=== PATIENT | male | born 1960 | race Asian ===

== ENCOUNTER 2016-07-07 08:13 | Emergency (ER) | payer OTHER ==
[~2016-07-07] VITALS: Ht 165.1 cm; Wt 55.8 kg
[2016-07-07 09:09] LABS: ABSOLUTE BASOPHIL COUNT 0 /CUMM (0.0-0.2); ABSOLUTE EOSINOPHIL COUNT 0 /CUMM (0.0-0.7); ABSOLUTE GRANULOCYTE CT 6.7 /CUMM (1.4-6.5); ABSOLUTE LYMPH COUNT 1.3 /CUMM (1.2-3.4); ABSOLUTE MONOCYTE COUNT 0.4 /CUMM (0.10-0.60); BASOPHIL % 0.3 % (0.0-2.0); EOSINOPHIL % 0 % (0-5); GRANULOCYTE % 79.9 % (42.2-75.2); HEMATOCRIT 39.2 % (42-52); MEAN CORPUSCULAR HGB 31.2 PG (27.0-31.0); MEAN CORPUSCULAR HGB CONC 33.5 G/DL (33.0-37.0); MEAN CORPUSCULAR VOLUME 93.1 FL (80.0-94.0); MEAN PLATELET VOLUME 7.5 FL (7.4-10.4); PLATELET COUNT 200 /CUMM (130-400); RBC DISTRIBUTION WIDTH 13.6 % (11.5-14.5); RED BLOOD CELL CT 4.21 /CUMM (4.70-6.10); WHITE BLOOD CELL COUNT 8.3 /CUMM (4.8-10.8)
--- NOTE | 2016-07-07 09:15 | RADIOLOGY REPORT ---
EXAMINATION: XR CHEST CLINICAL INFORMATION: Chest pain COMPARISON: None TECHNIQUE: 2 views of the chest were obtained. FINDINGS: Cardiomediastinal silhouette is within normal limits. Lungs are clear. Visualized bony thorax is intact. IMPRESSION: No acute pulmonary disease.
[2016-07-07] MEDS ORDERED: ZYRTEC10 M3 PO (09:16)
--- NOTE | 2016-07-07 09:25 | ED CARDIAC/CP/PALPITATIONS ---
History of Present Illness General Chief Complaint: Palpitations Stated Complaint: PALPITATIONS Source: patient Exam Limitations: no limitations Allergies Uncoded Allergies: SEAFOOD (Intermediate, ITCHING 07/07/16) Reconcile Medications Cetirizine HCl (Zyrtec) 10 MG TABLET 1 TAB PO DAILY ALLERGIES (Reported) Triage Note: 56 Y/O MALE C/O HEART PALPITATIONS, "ANXIETY" AND HEADACHE S/P TAKING SUPPLEMENT LAST NIGHT. STATES HE TOOK THE SUPPLEMENT "FOR ENERGY AND TO HELP ME RELAX"; STATES HE HAS TAKEN IN THE PAST WITH NO PROBLEMS. AFTER HE TOOK PILL LAST NIGHT, HE FELT "A HOT FLASH AND THEN MY HEART RATE WENT TOO HIGH .. I WAS VERY THIRSTY TOO". HR 90'S IN TRIAGE. EKG COMPLETED: SINUS TACH, 108 Triage Nurses Notes Reviewed? yes Onset: Abrupt Duration: day(s): (1), constant, continues in ED Timing: recent history HPI: 56-year-old male comes into emergency room for further evaluation of heart palpitations as well as some chest tightness and shortness of breath. Symptoms began last night after he took a arginine supplement. Patient reports he has taken this in the past and has had a similar reaction. He reports that he cannot sleep all night. Patient felt like his heart was racing. Denies any prior cardiac problems. Denies any prior history of MA. Nothing seems to make the symptoms better or worse. Denies any other associated symptoms. (KRISHNA RUBIO,GARETT) Vital Signs & Intake/Output Vital Signs & Intake/Output Vital Signs Date Time Temp Pulse Resp B/P B/P Pulse O2 O2 Flow FiO2 Mean Ox Delivery Rate 07/07 1610 100.3 07/07 1525 100.8 07/07 1457 101.4 96 18 154/74 97 Room Air 07/07 1254 97.2 92 16 128/68 98 Room Air 07/07 1047 97.3 87 18 141/69 98 Room Air 07/07 0822 97.2 101 18 170/83 100 Room Air Past History Travel History Traveled to [place] past 21 day No Medical History Any Pertinent Medical History? see below for history Neurological: NONE EENT: NONE Cardiovascular: NONE Respiratory: NONE Gastrointestinal: NONE Hepatic: NONE Renal: NONE Musculoskeletal: NONE Psychiatric: NONE Endocrine: NONE Blood Disorders: NONE Cancer(s): NONE LEAN SENSEI/Reproductive: NONE Surgical History Surgical History: non-contributory Psychosocial History What is your primary language Citizen Of [place] Tobacco Use: Never used Family History Hx Contributory? No (GARETT RODRIGUEZ) Review of Systems Review of Systems Constitutional: Reports: no symptoms. EENTM: Reports: no symptoms. Respiratory: Reports: no symptoms. Cardiovascular: Reports: see HPI. GI: Reports: no symptoms. Genitourinary: Reports: no symptoms. Musculoskeletal: Reports: no symptoms. Skin: Reports: no symptoms. Neurological/Psychological: Reports: no symptoms. Hematologic/Endocrine: Reports: no symptoms. Immunologic/Allergic: Reports: no symptoms. All Other Systems: Reviewed and Negative (GARETT RODRIGUEZ) Physical Exam Physical Exam General Appearance: well developed/nourished, no apparent distress, alert Head: atraumatic, normal appearance Eyes: Bilateral: normal appearance, EOMI. Ears, Nose, Throat: normal pharynx, hearing grossly normal Neck: normal inspection, full range of motion Respiratory: normal breath sounds, no respiratory distress Cardiovascular: regular rate/rhythm Gastrointestinal: soft Back: normal inspection Extremities: normal inspection, normal range of motion Neurologic/Psych: awake, alert, oriented x 3, normal gait Skin: intact, normal color Core Measures ACS in differential dx? Yes Severe Sepsis Present: No Septic Shock Present: No (GARETT RODRIGUEZ) Progress Differential Diagnosis: AMI, aortic dissection, atrial fibrillation, hyperkalemia, hypovolemia, hyperthyroid, hyperventilation, myocarditis, pancreatitis, pericarditis, pneumothorax, pulmonary embolism, PVCs/PACs, respiratory failure, rib fracture, sepsis, unstable angina, V-fib/V-Tach, WPW syndrome Diagnostic Imaging: Viewed by Me: Radiology Read. Discussed w/RAD: Radiology Read. Radiology Impression: SERVICE DATE: 07/07/16 EXAM TYPE: RAD - XRY-CHEST XRAY, PA AND LATERAL EXAMINATION: XR CHEST CLINICAL INFORMATION: Chest pain COMPARISON: None TECHNIQUE: 2 views of the chest were obtained. FINDINGS: Cardiomediastinal silhouette is within normal limits. Lungs are clear. Visualized bony thorax is intact. IMPRESSION: No acute pulmonary disease. DICTATED BY: DAVID ASENCIO MD DATE/TIME DICTATED:07/07/16911 MOWER OPERATOR:SALONI DATE/TIME TRANSCRIBED:07/07/16911 CONFIDENTIAL, DO NOT COPY WITHOUT APPROPRIATE AUTHORIZATION. Initial ED EKG: normal intervals, normal p-waves, normal sinus rhythm, rate (108 ), nonspecific ST T wave chg Repeat EKG: changed (rate improved) (GARETT RODRIGUEZ) Plan of Care: Orders Procedure Date/time Status Heart Healthy Diet 07/07 L Active TROPONIN LEVEL 07/07 1305 Complete EKG 07/07 1305 Active Telemetry/Annual Giving Officer 07/07 0846 Active TROPONIN LEVEL 07/07 0846 Complete D-DIMER 07/07 0846 Complete COMPREHENSIVE METABOLIC PANEL 07/07 0846 Complete CBC WITHOUT DIFFERENTIAL 07/07 0846 Complete EKG 07/07 0815 Active Laboratory Tests 07/07/16 1306: Troponin I < 0.01 07/07/16 0902: Anion Gap 13, Estimated GFR > 60, BUN/Creatinine Ratio 13.3, Glucose 105 H, Calcium 9.6, Total Bilirubin 0.9, AST 27, ALT 50, Alkaline Phosphatase 73, Troponin I < 0.01, Total Protein 7.5, Albumin 4.6, Globulin 2.9, Albumin/ Globulin Ratio 1.6, D-Dimer < 200, CBC w Diff NO MAN DIFF REQ, RBC 4.21 L, MCV 93.1, MCH 31.2 H, RDW 13.6, MPV 7.5, Gran % 79.9 H, Lymphocytes % 15.4 L, Monocytes % 4.4, Eosinophils % 0, Basophils % 0.3, Absolute Granulocytes 6.7 H, Absolute Lymphocytes 1.3, Absolute Monocytes 0.4, Absolute Eosinophils 0, Absolute Basophils 0, PUBS MCHC 33.5 Departure Departure Disposition: HOME OR SELF CARE Condition: Stable Clinical Impression Primary Impression: Atypical chest pain Referrals: VANDA LACKEY,EVITA Martins (PCP/Family) Additional Instructions: Follow-up with swimmer provided. Please return to the emergency room immediately if you have any recurrent chest pain shortness of breath or any other concerns. Do not take that supplement [id number] anymore. Please go over all results of today's visit with your primary care doctor. Contact your primary care doctor to let them know you were here in the emergency room. There may be nonspecific findings which may not be related to your visit today here in the emergency room but may require further evaluation and chronic monitoring by your primary care doctor. If you had a laceration today the chance of foreign body always remains. You should follow-up with your primary care doctor for recheck in 3-5 days for a wound check. If you had an x-ray done there is a chance that a fracture could have been missed on initial read and you should follow-up with your primary care doctor for repeat x-rays if symptoms persist. If your blood pressure was elevated here in the emergency room please have rechecked by her primary care doctor within the next 48 hours by your primary care doctor. If you were prescribed a narcotic here in the emergency room or any type of controlled substances you're not allowed to drive while taking this medication or operate any type of heavy machinery. Narcotics can make you feel lightheaded dizziness nausea and can cause constipation. You may need to picker / packer a stool softener. Thank you for choosing [facility] emergency room. Please return to the emergency room immediately if you have any other concerns worsening of symptoms. Departure Forms: Customer Survey General Discharge Information Comments 07/07/2016 5:56:05 PM Patient was observed for over 6 hours here in the emergency room. 2 negative troponins. Rate improved on second EKG. Case was discussed with Dr. Monroy. Dr. Monroy was consult that on the case. At this time due to the fact the patient's symptoms have improved patient will be discharged with follow-up with him on Sunday of next week. Patient was reevaluated multiple times. Long conversation with patient and family about plan of care. Patient's symptoms began after he took a [id number] supplement. Patient was instructed to not take this medication again. He understands and agrees with plan of care. His symptoms have significantly improved. Case was discussed with Dr. Cerrato. He agrees with plan of care. (KRISHNA RUBIO,GARETT) PA/COMMUNITY ADMINISTRATOR Co-Sign Statement Statement: ED Attending supervision documentation- [] I saw and evaluated the patient. I have also reviewed all the pertinent lab results and diagnostic results. I agree with the findings and the plan of care as documented in the PA's/COMMUNITY ADMINISTRATOR's documentation. [X] I have reviewed the ED Record and agree with the PA's/COMMUNITY ADMINISTRATOR's documentation. [] Additions or exceptions (if any) to the PAs/COMMUNITY ADMINISTRATOR's note and plan are summarized below: [] (ANGEL LACKEY,ROSLYN Gallagher) Critical Care Note Critical Care Note Critical Care Time: non-applicable (KRISHNA RUBIO,GARETT)
[2016-07-07 14:57] VITALS: BP 154/74
== END 2016-07-07 16:09 ==
LOC: ERH 08:13
PROVIDERS: Physician Assistant Medical
DX: R07.89 Other chest pain (principal)
CPT/HCPCS: 93005; 93010